=== PATIENT | male | born 1970 | race Caucasian/White ===

== ENCOUNTER 2021-07-08 10:05 | Emergency (ER) | payer MEDICAID, OTHER ==
[~2021-07-08] VITALS: Ht 172.7 cm; Wt 80.0 kg
--- NOTE | 2021-07-08 10:47 | NUR ---
cell changer note: Pt to room from [facility].
[2021-07-08 11:05] VITALS: BP 124/71
--- NOTE | 2021-07-08 11:09 | NUR ---
BIBA FOR WITNESSED SIEZURE LASTING ROUGHLY 2 MIN THIS AM SMALL LAC/BRUISE TO RIGHT SIDE OF TONGUE INCONTINENT OF URINE HX OF SAME (LAST ONE 7 YEARS AGO). STOPPED TAKING UNKNOWN SEIZURE MEDS ROUGHLY 6 YEARS AGO FSBS 135 VSS-NOW ALERT/ORIENTED X4 SEIZURE PRECAUTIONS PLACED
[2021-07-08] MEDS ORDERED: LORazepam 2 MG/ML, 1ML ONE (11:51)
[2021-07-08] MEDS ORDERED: THIAMINE 100 MG in SODIUM CHLORIDE 0.9% 50 ML IVPB ONE (12:00)
[2021-07-08] MEDS ORDERED: LORazepam 2 MG/ML, 1ML IVPush PRN (12:00)
[2021-07-08] MEDS ORDERED: SODIUM CHLORIDE FLUSH 10ML SYR IVF ONE (12:00)
[2021-07-08] MEDS ORDERED: SODIUM CHLORIDE 0.9% 1,000ML IVBOLUS ONE (12:00)
--- NOTE | 2021-07-08 12:11 | NUR ---
NEURO EXAM UNCHANGED TO CT SCAN AT 1210
[2021-07-08 12:14] LABS: BASOPHILS % (AUTO) 1 % (0-1); EOSINOPHILS % (AUTO) 1 % (1-7); LYMPHOCYTES % (AUTO) 20 % (22-44); MEAN CORPUSCULAR HEMOGLOBIN 35.1 pg (27.5-34.5); MEAN PLATELET VOLUME 9.9 fL (7.4-10.4); MONOCYTES % (AUTO) 15 % (2-9); NEUTROPHILS % (AUTO) 63 % (42-75); PLATELET COUNT 72 x10^3/uL (130-400); RED BLOOD COUNT 4.07 x10^6/uL (4.38-5.82); RED CELL DISTRIBUTION WIDTH 13.9 % (9.4-14.8)
[2021-07-08 12:23] LABS: ALANINE AMINOTRANSFERASE 35 U/L (12-78); ALBUMIN 2.4 g/dL (3.4-5.0); ANION GAP 7 mmol/L (5-15); CALCIUM 8.1 mg/dL (8.5-10.1); CHLORIDE 106 mmol/L (98-107)
[2021-07-08 12:25] LABS: ALKALINE PHOSPHATASE 110 U/L (45-117); BILIRUBIN,TOTAL 2.8 mg/dL (0.2-1.0); CREATININE 0.64 mg/dL (0.7-1.3)
--- NOTE | 2021-07-08 14:31 | NUR ---
po challenge and road test unremarkable. discharged in care of son
== END 2021-07-08 14:33 | disposition home or self-care (01) ==
LOC: ED 14:25
DX: S00.512A Abrasion of oral cavity, initial encounter (principal); R56.9 Unspecified convulsions; R55 Syncope and collapse; J69.0 Pneumonitis due to inhalation of food and vomit; X58.XXXA Exposure to other specified factors, initial encounter; Y93.89 Activity, other specified; Y92.89 Other specified places as the place of occurrence of the external cause; Y99.8 Other external cause status
CPT/HCPCS: 36415; 70450; 71045; 80053; 80320; 83605; 83690; 85025; 96365; 96366; 96375; 99285; J2060; J3411; J7030; G0480